=== PATIENT | female | born 1980 | race Caucasian/White ===

== ENCOUNTER 2016-07-07 23:12 | Emergency (ER) | payer MEDICARE, OTHER ==
[~2016-07-07] VITALS: Ht 165.1 cm; Wt 95.3 kg
[~2016-07-07 23:12] MED LIST: MECLIZINE25 M2 PO
[2016-07-07 23:14] VITALS: BP 148/93
--- NOTE | 2016-07-08 00:12 | NUR ---
TO ER BED 4
--- NOTE | 2016-07-08 00:14 | NUR ---
PATIENT PRESENTS TO ED WITH SORE THROAT X 4 DAYS 6/10 PAIN. . PT DENIES N/V/D; SKIN IS PINK/WARM/DRY; AAOX4 WITH EVEN AND STEADY GAIT; LUNGS CLEAR BL; HR EVEN AND REGULAR; PT DENIES ANY FEVER, CP, SOB, OR COUGH AT THIS TIME; PATIENT STATES PAIN OF 6/10 AT THIS TIME; VSS; PATIENT POSITIONED FOR COMFORT; HOB ELEVATED; BEDRAILS UP X2; BED DOWN. ER MD MADE AWARE OF PT STATUS. HX: HYPOTHYROID NKA
--- NOTE | 2016-07-08 00:20 | NUR ---
Patient being evaluated by DR. SUMMERS at bedside.
--- NOTE | 2016-07-08 00:45 | NUR ---
Patient discharged with v/s stable. Written and verbal after care instructions given and explained. Patient alert, oriented and verbalized understanding of instructions. Ambulatory with steady gait. All questions addressed prior to discharge. ID band removed. Patient advised to follow up with PMD. Rx of TRAMADOL 50 MG, LIDOCAINE 2% VISCOUS, AMOXICILLIN 250 MG given. Patient educated on indication of medication including possible reaction and side effects. Opportunity to ask questions provided and answered.
[2016-07-08 00:47] VITALS: BP 135/85
== END 2016-07-08 00:45 | disposition home or self-care (01) ==
LOC: MED 23:12
DX: J03.90 Acute tonsillitis, unspecified (principal); R03.0 Elevated blood-pressure reading, without diagnosis of hypertension

== ENCOUNTER 2016-10-15 18:44 | Emergency (ER) | payer MEDICARE, OTHER ==
[~2016-10-15] VITALS: Ht 165.1 cm; Wt 91.2 kg
[~2016-10-15 18:44] MED LIST changes: +MECL-272 PO; -MECLIZINE25 M2 PO
[2016-10-15 19:03] VITALS: BP 122/77
--- NOTE | 2016-10-15 19:39 | NUR ---
Patient to OF.
--- NOTE | 2016-10-15 19:52 | NUR ---
PT BIB FAMILY C/O DOMINGA LEG PAIN SINCE LAST NOC. PT STS " HAD LT KNEE SURGERY 08/2014. PAIN MEDS AT HOME ARE NOT HELPING WITH THE PAIN AT THIS TIME." DENIES ANY FALL OR TRAUMA. HX HYPOTHYROIDISM. PAIN 11/07. GAIT-WNL, FULL A.R.O.M. NOTED
--- NOTE | 2016-10-15 20:00 | NUR ---
Dr. Rogers evaluating patient.
--- NOTE | 2016-10-15 20:08 | NUR ---
Patient to XRAY via wheelchair per tech.
--- NOTE | 2016-10-15 20:27 | NUR ---
Patient back from XRAY via wheelchair per tech.
--- NOTE | 2016-10-15 20:29 | NUR ---
LAB at OF drawing blood.
[2016-10-15 20:59] LABS: BASOPHILS # (AUTO) 0.1 K/uL (0.00-0.22); BASOPHILS % (AUTO) 0.7 % (0.0-2.0); EOSINOPHILS # (AUTO) 0.2 K/uL (0-0.4); EOSINOPHILS % (AUTO) 1.9 % (0.0-4.0); HEMATOCRIT 42.6 % (36-48); LYMPHOCYTES % (AUTO) 19.5 % (20.5-51.1); MEAN CORPUSCULAR HEMOGLOBIN 27 pg (27-31); MEAN CORPUSCULAR HGB CONC 33 g/dL (33-37); MEAN CORPUSCULAR VOLUME 81 fL (80-94); MONOCYTES # (AUTO) 0.7 K/uL (0.8-1.0); MONOCYTES % (AUTO) 7.2 % (1.7-9.3); NEUTROPHILS # (AUTO) 7.3 K/uL (1.8-7.7); NEUTROPHILS % (AUTO) 70.7 % (42.2-75.2); PLATELET COUNT (AUTO) 254 K/uL (140-450); RED BLOOD CELL COUNT(AUTO) 5.23 MIL/uL (4.20-5.40); RED CELL DISTRIBUTION WIDTH 12.6 % (11.6-13.7); WHITE BLOOD COUNT (AUTO) 10.3 K/uL (4.8-10.8)
[2016-10-15 21:00] LABS: BARBITURATE, URINE NEG. ng/ml (NEG <=200); BILIRUBIN,URINE NEGATIVE (NEGATIVE); BLOOD, URINE TRACE-I (NEGATIVE); COLOR,URINE YELLOW (YELLOW); LEUKOCYTE ESTERASE ,URINE NEGATIVE (NEGATIVE); NITRITE, URINE NEGATIVE (NEGATIVE); PH,URINE 5.5 (5.0-9.0); PROTEIN,URINE NEGATIVE (NEGATIVE); UGLUCOSE NEGATIVE (NEGATIVE); UROBILINOGEN,URINE 0.2 EU/dL (0.2 - 1)
[2016-10-15 21:01] LABS: AMPHETAMINE, URINE NEG. ng/ml (NEG <=1000); BENZODIAZEPINE, URINE NEG. ng/mL (NEG <=200); CANNABINOID, URINE POS. ng/mL (NEG <=50); COCAINE, URINE NEG. ng/mL (NEG <=300); OPIATE, URINE NEG. ng/mL (NEG <=2000); PHENCYCLIDINE SCREEN,URINE NEG. ng/mL (NEG <=25)
[2016-10-15 21:08] LABS: ANION GAP 11.5 (8-16); CALCIUM 9.4 mg/dL (8.5-10.1); CARBON DIOXIDE 30.2 mmol/L (21-32); CREATININE 0.7 mg/dL (0.6-1.3); POTASSIUM 3.7 mmol/L (3.5-5.1)
[2016-10-15 21:18] LABS: APPEARANCE,URINE CLOUDY (CLEAR)
[2016-10-15 21:19] LABS: RBC,URINE 0-5 (RARE) /HPF (0-5); WBC,URINE 0-5 (RARE) /HPF (0-5)
[2016-10-15 21:20] LABS: BACTERIA,URINE FEW /HPF (None Seen); SQUAMOUS EPITHELIAL CELL,UR 0-3 (FEW) /LPF (0-3 (FEW)); URINE AMORPHOUS URATE 3+ /HPF (None Seen)
[2016-10-15 21:24] LABS: ALBUMIN 3.9 g/dL (3.4-5.0); FREE T4 (FREE THYROXINE) 0.91 ng/dL (0.76-1.46); MAGNESIUM 2.2 mg/dL (1.8-2.4); THYROID STIMULATING HORMONE 3.55 uIU/mL (0.34-3.76); TOTAL BILIRUBIN 0.2 mg/dL (0.0-1.0); TOTAL PROTEIN, SERUM 8.2 g/dL (6.4-8.2)
[2016-10-15 22:18] VITALS: BP 119/68
--- NOTE | 2016-10-15 22:19 | NUR ---
Patient discharged with v/s stable. Written and verbal after care instructions given and explained. Patient alert, oriented and verbalized understanding of instructions. Ambulatory with steady gait. All questions addressed prior to discharge. ID band removed. Patient advised to follow up with PMD. Rx of MOTRIN 600MG, ROBAXIN 500MG given. Patient educated on indication of medication including possible reaction and side effects. Opportunity to ask questions provided and answered.
== END 2016-10-15 22:19 | disposition home or self-care (01) ==
LOC: MED 18:44
DX: M54.32 Sciatica, left side (principal); E05.90 Thyrotoxicosis, unspecified without thyrotoxic crisis or storm
CPT/HCPCS: 36415; 72110; 80053; 80305; 81001; 81025; 83735; 84439; 84443; 85025; 99285

== ENCOUNTER 2018-06-15 14:34 | Emergency (ER) | payer MEDICARE, OTHER ==
[~2018-06-15] VITALS: Ht 162.6 cm; Wt 104.0 kg
--- NOTE | 2018-06-15 14:36 | NUR ---
PT TO ER BED 2
[2018-06-15 14:44] VITALS: BP 131/87
[2018-06-15] MEDS ORDERED: KETOROLAC 30 MG/ML VIAL IM ONE (15:00)
--- NOTE | 2018-06-15 15:06 | NUR ---
Bib friend with c/o Rt shoulder/arm/wrist pain s/p fall from 3rd step on a stairs yesterday. Denies aloc, nvd or other injuries. Unable to lift rt arm above her rt shoulder. VSS; PATIENT POSITIONED FOR COMFORT; HOB ELEVATED; BEDRAILS UP X2; BED DOWN. ER MD MADE AWARE OF PT STATUS.
[2018-06-15 16:05] VITALS: BP 138/82
--- NOTE | 2018-06-15 16:05 | NUR ---
Patient discharged with v/s stable. Written and verbal after care instructions given and explained. Patient alert, oriented and verbalized understanding of instructions. Ambulatory with steady gait. All questions addressed prior to discharge. ID band removed. Patient advised to follow up with PMD. Rx of TYLENOL EXTRA STRENGTH 500MG given. Patient educated on indication of medication including possible reaction and side effects. Opportunity to ask questions provided and answered.
== END 2018-06-15 16:05 | disposition home or self-care (01) ==
LOC: MED 14:34
DX: S43.401A Unspecified sprain of right shoulder joint, initial encounter (principal); S63.501A Unspecified sprain of right wrist, initial encounter; W10.9XXA Fall (on) (from) unspecified stairs and steps, initial encounter; Y93.89 Activity, other specified; Y92.89 Other specified places as the place of occurrence of the external cause; Y99.8 Other external cause status
CPT/HCPCS: 73030; 73110; 96372; 99283; J1885; Q0092

== ENCOUNTER 2018-09-26 23:11 | Emergency (ER) | payer MEDICARE, MEDICAID ==
[~2018-09-26] VITALS: Ht 165.1 cm; Wt 90.7 kg
[2018-09-26 23:16] VITALS: BP 130/74
--- NOTE | 2018-09-26 23:19 | NUR ---
PT AMBULATED TO BED 7. PROVIDED WITH URINE CUP.
[2018-09-26] MEDS ORDERED: KETOROLAC 60 MG/2 ML VIAL IM ONE (23:20)
--- NOTE | 2018-09-26 23:36 | NUR ---
DR. GARCIA BEDSIDE EVALUATING PT
[2018-09-27 00:06] VITALS: BP 117/74
== END 2018-09-27 00:06 | disposition home or self-care (01) ==
LOC: MED 23:11
DX: M79.621 Pain in right upper arm (principal); E05.90 Thyrotoxicosis, unspecified without thyrotoxic crisis or storm; Z79.899 Other long term (current) drug therapy
CPT/HCPCS: 81025; 96372; 99283; J1885

== ENCOUNTER 2018-10-22 17:12 | Emergency (ER) | payer MEDICARE, MEDICAID ==
[~2018-10-22] VITALS: Ht 165.1 cm; Wt 100.8 kg
[2018-10-22 17:18] VITALS: BP 116/89
--- NOTE | 2018-10-22 17:20 | NUR ---
PT AMBULATED TO BED 12
--- NOTE | 2018-10-22 17:21 | NUR ---
C/O TOOTH PAIN X 2 HOURS. PT REPORTS CHEWING ON ICE AND HER BACK MOLAR ON TOP LT SIDE OF MOUTH CRACKED MEDHX:HYPOTHYROID RX:LEVOTHYROXINE
[2018-10-22] MEDS ORDERED: HYDROcodone/APAP 5/325 MG 1 TAB TAB PO ONE (17:50)
--- NOTE | 2018-10-22 18:20 | NUR ---
DPatient discharged with v/s stable. Written and verbal after care instructions given and explained. Patient alert, oriented and verbalized understanding of instructions. Ambulatory with steady gait. All questions addressed prior to discharge. ID band removed. Patient advised to follow up with PMD. Rx of IBUPROFEN, AMOXICILLIN AND NORCO given. Patient educated on indication of medication including possible reaction and side effects. Opportunity to ask questions provided and answered.
== END 2018-10-22 18:20 | disposition home or self-care (01) ==
LOC: MED 17:12
DX: S02.5XXA Fracture of tooth (traumatic), initial encounter for closed fracture (principal); E05.90 Thyrotoxicosis, unspecified without thyrotoxic crisis or storm; Z79.899 Other long term (current) drug therapy; X58.XXXA Exposure to other specified factors, initial encounter; Y93.89 Activity, other specified; Y92.89 Other specified places as the place of occurrence of the external cause; Y99.8 Other external cause status
CPT/HCPCS: 99283

== ENCOUNTER 2019-01-16 13:37 | Emergency (ER) | payer MEDICARE, MEDICAID ==
[~2019-01-16] VITALS: Ht 165.1 cm; Wt 95.3 kg
[2019-01-16 13:41] VITALS: BP 142/91
[2019-01-16] MEDS ORDERED: KETOROLAC 30 MG/ML VIAL IM ONE (14:40)
[2019-01-16] MEDS ORDERED: DEXAMETHASONE 10 MG/ML VIAL IM ONE (14:40)
[2019-01-16 15:00] VITALS: BP 137/89
== END 2019-01-16 15:00 | disposition home or self-care (01) ==
LOC: MED 13:37
DX: S46.811A Strain of other muscles, fascia and tendons at shoulder and upper arm level, right arm, initial encounter (principal); E05.90 Thyrotoxicosis, unspecified without thyrotoxic crisis or storm; Z79.899 Other long term (current) drug therapy; Z90.49 Acquired absence of other specified parts of digestive tract; X58.XXXA Exposure to other specified factors, initial encounter; Y93.89 Activity, other specified; Y92.89 Other specified places as the place of occurrence of the external cause; Y99.8 Other external cause status
CPT/HCPCS: 96372; 99283; J1100; J1885

== ENCOUNTER 2019-01-22 13:29 | Emergency (ER) | payer MEDICARE, MEDICAID ==
[~2019-01-22] VITALS: Ht 162.6 cm; Wt 100.9 kg
[2019-01-22 13:34] VITALS: BP 143/90
--- NOTE | 2019-01-22 13:46 | NUR ---
PT BIB SELF C/O LT KNEE PAIN X3 DAYS. PT REPORTS NON RADIATING SHARP PAIN AT 10/10 THAT INCREASES W/ WALKING, TX WITH MOTRIN W/ NO RELIEF. PT DENIES INJURY OR TRAUMA, - SWELLING, -ERYTHEMA, + CMS. MEDIAL LT KNEE WARM TO TOUCH. VSS. ER MD AT BEDSIDE. MEDHX:DENIES RX:IBUPROFEN
[2019-01-22] MEDS ORDERED: KETOROLAC 60 MG/2 ML VIAL IM ONE (13:50)
--- NOTE | 2019-01-22 14:02 | NUR ---
X-RAY AT [facility]
--- NOTE | 2019-01-22 15:28 | NUR ---
PT RESTING IN BED, FAMILY AT BEDSIDE, PT REPORTS INTERMITENT PAIN AT 5/10 AT THIS TIME, VSS
[2019-01-22 15:58] VITALS: BP 135/93
== END 2019-01-22 15:58 | disposition home or self-care (01) ==
LOC: MED 13:29
DX: M17.12 Unilateral primary osteoarthritis, left knee (principal); R03.0 Elevated blood-pressure reading, without diagnosis of hypertension; E05.90 Thyrotoxicosis, unspecified without thyrotoxic crisis or storm; Z79.899 Other long term (current) drug therapy; Z98.890 Other specified postprocedural states
CPT/HCPCS: 29505; 73562; 96372; 99283; J1885; Q0092

== ENCOUNTER 2021-09-17 12:14 | Emergency (ER) | payer MEDICARE, MEDICAID ==
[~2021-09-17] VITALS: Ht 165.1 cm; Wt 91.6 kg
[~2021-09-17 12:14] MED LIST changes: -MECL-272 PO; +MECL-303 PO
[2021-09-17 12:15] VITALS: BP 118/82
[2021-09-17] MEDS ORDERED: KETOROLAC 30 MG/ML VIAL IM ONE (12:40)
--- NOTE | 2021-09-17 12:44 | NUR ---
RAD AT BEDSIDE
[2021-09-17] MEDS ORDERED: TRAM50TA1 PO (13:11)
--- NOTE | 2021-09-17 13:27 | NUR ---
Patient discharged with v/s stable. Written and verbal after care instruction FOR SHOULDER PAIN given and explained. Patient alert, oriented and verbalized understanding of instructions. Ambulatory with steady gait. All questions addressed prior to discharge. ID band removed. Patient advised to follow up with PMD. Rx of TRAMADOL HCL given. Opportunity to ask questions provided and answered.
--- NOTE | 2021-09-17 13:28 | NUR ---
The patient's care was reviewed and supervised by Jaenth Shepherd RN.
== END 2021-09-17 13:28 | disposition home or self-care (01) ==
LOC: MED 12:14
DX: M25.511 Pain in right shoulder (principal)
CPT/HCPCS: 73030; 96372; 99283; J1885; Q0092

== ENCOUNTER 2024-02-21 11:24 | Emergency (ER) | payer OTHER ==
[~2024-02-21] VITALS: Ht 165.1 cm; Wt 101.6 kg
[~2024-02-21 11:24] MED LIST changes: +TRAM-748 PO
[2024-02-21 11:29] VITALS: BP 119/82; PULSE 79; RESP 18; TEMP 98; O2SAT 98
[2024-02-21] MEDS: LIDOCAINE 5% 1 EA PATCH TP SCH (13:23)
[2024-02-21] MEDS: KETOROLAC 30 MG/ML VIAL IM SCH (13:23)
[2024-02-21] MEDS: HYDROcodone/APAP 7.5/325 MG 1 TAB PO SCH (13:23)
[2024-02-21] MEDS ORDERED: ACET-8905 PO (13:45)
[2024-02-21] MEDS ORDERED: IBUP-2213 PO (13:45)
[2024-02-21] MEDS ORDERED: LID5T TP (13:45)
[2024-02-21 13:58] VITALS: BP 137/72; PULSE 79; RESP 18; TEMP 36.66960; O2SAT 97
== END 2024-02-21 13:58 | disposition home or self-care (01) ==
LOC: MED 11:24
DX: G89.29 Other chronic pain (principal); M54.50 Low back pain, unspecified; R03.0 Elevated blood-pressure reading, without diagnosis of hypertension; E03.9 Hypothyroidism, unspecified; F32.9 Major depressive disorder, single episode, unspecified; Z79.899 Other long term (current) drug therapy
CPT/HCPCS: 81025; 96372; 99283; J1885